=== PATIENT | male | born 1975 | race Caucasian/White ===

== ENCOUNTER 2017-02-08 18:46 | Emergency (ER) | payer OTHER ==
[~2017-02-08] VITALS: Ht 175.3 cm; Wt 77.1 kg
[~2017-02-08 18:46] MED LIST: BCTR15O EXT; HYDR-1231 PO
[2017-02-08] MEDS ORDERED: LISI10TA2 PO (19:00)
[2017-02-08] MEDS ORDERED: LEVOTHYROXINE (19:00)
[2017-02-08] MEDS ORDERED: GABAPENTIN (19:00)
[2017-02-08] MEDS ORDERED: HYDROcodone/APAP 10 MG/325 MG (LORTAB) TAB PO STA (19:16)
[2017-02-08] MEDS ORDERED: TETANUS,DIPTH,PERTUSS P/F (BOOSTRIX) 0.5 ML VIAL IM STA (19:16)
--- NOTE | 2017-02-08 19:25 | ED Fall/Injury ---
General Chief Complaint: Upper Extremity Stated Complaint: R ARM INJ Nursing Triage Note: PT STATES HE SLIPPED AND FELL GETTING INTO THE SHOWER, CC OF RT FOREARM PAIN AND SWELLING AND LOW BACK PAIN. NO LOC OR NECK PAIN. Source: patient Exam Limitations: no limitations History of Present Illness Time seen by provider: 19:25 Initial Comments 41-year-old male patient presents to the emergency department with complaints of low back pain and right forearm pain/swelling after falling while getting into the shower. Denies loss of consciousness, headache, confusion, neck pain, or dizziness. Denies bowel or bladder incontinence. Location Injury Occurred: home Occurred: this evening Injuries/Pain Location: upper extremity (right forearm), back Context: slipped Loss of Consciousness: no loss of consciousness Modifying Factors: Improves With Immobilization, Worse With Movement Allergies and Home Medications Allergies Coded Allergies: No Known Drug Allergies (Unverified , 05/02/15) Home Medications Bacitracin 15 Gm Oint, 15 GM EXT DAILY, #1 Ref 11 Prescribed by: HARJIT SHIPMAN on 05/02/15 0331 Hydrocodone Bit/Acetaminophen 1 Tab Tablet, 1-2 TAB PO Q6H PRN for PAIN, #20 Prescribed by: HARJIT SHIPMAN on 05/02/15 0328 Lisinopril 10 Mg Tablet, 10 MG PO DAILY, (Reported) [Gabapentin] , (Reported) [Levothyroxine] , (Reported) Constitutional: No dizziness, No weakness Eyes: No Symptoms Reported Ears, Nose, Mouth, Throat: no symptoms reported Respiratory: no symptoms reported Cardiovascular: no symptoms reported Gastrointestinal: No abdominal pain, No diarrhea, No nausea, No vomiting Genitourinary: No dysuria, No hematuria, No pain Musculoskeletal: see HPI, back pain, joint pain, joint swelling, No neck pain Skin: no symptoms reported Psychiatric/Neurological: Denies Headache, Denies Numbness, Denies Paresthesia , Denies Seizure, Denies Tingling, Denies Weakness All Other Systems Reviewed Negative Unless Noted: Yes (Negative excepted noted.) Past Qgpibfh-[id number]-Jcduvc Hx Patient Social History Alcohol Use: Denies Use Recreational Drug Use: Yes (METH) Smoking Status: Current Everyday Smoker Type Used: Cigarettes Recent Foreign Travel: No Contact w/Someone Who Travel: No Recent Infectious Disease Expo: No Recent Hopitalizations: No Immunizations Up To Date Tetanus Booster (TDap): More than 5yrs PED Vaccines UTD: No Seasonal Allergies Seasonal Allergies: No Surgeries HX Surgeries: Yes Surgeries: Appendectomy Respiratory Hx Respiratory Disorders: No Cardiovascular Hx Cardiac Disorders: Yes Cardiac Disorders: Hypertension Neurological Hx Neurological Disorders: No Genitourinary Hx Genitourinary Disorders: No Gastrointestinal Hx Gastrointestinal Disorders: No Musculoskeletal Hx Musculoskeletal Disorders: No Endocrine Hx Endocrine Disorders: Yes Endocrine Disorders: Hypothyroidsim Cancer Hx Cancer: No Psychosocial Hx Psychiatric Problems: No Integumentary HX Skin/Integumentary Disorder: No Blood Transfusions Hx Blood Disorders: No Reviewed Nursing Assessment Reviewed/Agree w Nursing PMH: Yes Family Medical History Significant Family History: No Pertinent Family Hx Physical Exam Vital Signs Capillary Refill : Less Than 3 Seconds General Appearance: WD/WN, no apparent distress HEENT: PERRL/EOMI, normal ENT inspection, TMs normal, pharynx normal Neck: non-tender, full range of motion, supple, normal inspection Cardiovascular: normal peripheral pulses, regular rate, rhythm, no murmur Respiratory: lungs clear, normal breath sounds, no respiratory distress Peripheral Pulses: 2+ Dorsalis Pedis (R), 2+ Left Dors-Pedis (L), 2+ Radial Pulses (R), 2+ Radial Pulses (L) Gastrointestinal: normal bowel sounds, non tender, soft, No distended Back: normal inspection, decreased range of motion, muscle spasm, vertebral tenderness (lumbar spine) Extremities: normal capillary refill, pelvis stable, swelling (swelling, bony tenderness, and soft tissue tenderness right forearm. Tenderness of the distal to mid humerus without ecchymosis or swelling.) Neurologic/Psychiatric: data technical lead II-XII nml as tested, no motor/sensory deficits, alert, normal mood/affect, oriented x 3 Skin: normal color, warm/dry Progress/Results/Core Measures Results/Orders My Orders Orders - TROY FERGUSON Forearm, Right, 2 Views (02/08/17 19:16) Humerus, Right, 2 Views (02/08/17 19:16) Ct Lumbar Spine Wo (02/08/17 19:16) Hydrocodone/Apap 10/325 Tablet (Lortab 1 (02/08/17 19:16) Dipht,Pertuss(Acell),Tet Adult (Boostrix (02/08/17 19:16) Vaccine Administration Single (02/08/17 ) Vital Signs/I&O Blood Pressure Mean: 108 Diagnostic Imaging Diagonstic Imaging: CT Plain Films/CT/US/NM/MRI: other (lumbar spine) Comments FINDINGS: Lumbar vertebral body heights are maintained. The alignment is within normal limits. The pedicles and pars were intact. Degenerative disc space narrowing, vacuum gas phenomena, endplate sclerosis, osteophytes and subcortical cysts appeared most pronounced at the L5-S1 level where there is a resultant mild canal and mild biforaminal stenosis. An acute-appearing abnormality, however, is not identified. No paravertebral mass, hemorrhage or fluid collection. Sacrum appeared nonacute. The transverse processes and posterior elements nonacute. IMPRESSION: Spondylosis and facet arthrosis greatest across the lumbosacral junction. An acute-appearing abnormality, however, is not identified. Dictated by: Dictated on workstation # [id number] Reviewed: Reviewed by Me (radiology report reviewed by me) Diagonstic Imaging: Xray Plain Films/CT/US/NM/MRI: other (humerus) Comments Indication: Right arm injury from a fall 2 views of the right humerus show no fracture or dislocation. Impression: Negative right humerus Dictated by: Dictated on workstation # [id number] Reviewed: Reviewed by Me (radiology report reviewed by me) Diagonstic Imaging: Xray Plain Films/CT/US/NM/MRI: forearm Comments FINDINGS: Radius and ulna appear intact. No pathologically displaced fat pads at the elbow. The wrist appears nonacute. IMPRESSION: No acute-appearing abnormality. Dictated by: Dictated on workstation # [id number] Reviewed: Reviewed by Me (radiology report reviewed by me) Departure Communication Progress Notes Diagnostic findings discussed with the patient. Plan for discharge to home. Impression Impression: Primary Impression: Lumbar back sprain Qualified Codes: S33.5XXA - Sprain of ligaments of lumbar spine, initial encounter Additional Impression: Contusion of forearm, right Disposition: Condition: Stable Departure-Patient Inst. Decision time for Depature: 20:04 Referrals: [facility] (PCP/Family) Primary Care Physician Patient Instructions: Contusion (DC), Muscle Strain (DC) Add. Discharge Instructions: All discharge instructions reviewed with patient and/or family. Voiced understanding. Tylenol Extra Strength [id number] as directed for pain. Ibuprofen 800 mg by mouth every 8 hours as needed for pain. No lifting, strenuous activity, twisting 7 days. Increase activity as tolerated. Follow- up with her family practitioner if no improvement in symptoms in 7-10 days. Return to the emergency department for worsened symptoms, numbness, weakness, bowel incontinence, bladder incontinence, or any other concerns. TROY FERGUSON Feb 08, 2017 19:25
--- NOTE | 2017-02-08 19:54 | Diagnostic Imaging Report ---
INDICATION: Fall, pain. FINDINGS: Radius and ulna appear intact. No pathologically displaced fat pads at the elbow. The wrist appears nonacute. IMPRESSION: No acute-appearing abnormality. Dictated by: Dictated on workstation # [id number]
--- NOTE | 2017-02-08 19:54 | Diagnostic Imaging Report ---
Indication: Right arm injury from a fall 2 views of the right humerus show no fracture or dislocation. Impression: Negative right humerus Dictated by: Dictated on workstation # [id number]
--- NOTE | 2017-02-08 19:54 | Diagnostic Imaging Report ---
PROCEDURE: CT lumbar spine without contrast. TECHNIQUE: Multiple contiguous axial images were obtained through the lumbar spine without the use of intravenous contrast. Sagittal and coronal reformations were then performed. INDICATION: Fall with pain. FINDINGS: Lumbar vertebral body heights are maintained. The alignment is within normal limits. The pedicles and pars were intact. Degenerative disc space narrowing, vacuum gas phenomena, endplate sclerosis, osteophytes and subcortical cysts appeared most pronounced at the L5-S1 level where there is a resultant mild canal and mild biforaminal stenosis. An acute-appearing abnormality, however, is not identified. No paravertebral mass, hemorrhage or fluid collection. Sacrum appeared nonacute. The transverse processes and posterior elements nonacute. IMPRESSION: Spondylosis and facet arthrosis greatest across the lumbosacral junction. An acute-appearing abnormality, however, is not identified. Dictated by: Dictated on workstation # [id number]
[2017-02-08 20:14] VITALS: BP 149/88
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
--- OUTSIDE RECORDS SUMMARY | 2017-03-14 06:54 | XMS REPORT ---
Author Author HUOSTON TAYLOR Organization [employer] Address Unknown Phone Unavailable Care Team Providers Care Chronometer Repairer Name Role Phone HOUSTON TAYLOR CP Unavailable Allergies No Known Allergies Problems Problem Type Condition Code Onset Dates Condition Status Problem Hyperlipidemia, unspecified E78.5 Active Problem Hypertension, benign I10 Active Problem Hyperlipidemia, mixed E78.2 Active Assessment Hypothyroidism, unspecified E03.9 Active Assessment Essential hypertension I10 Active Assessment Hyperlipidemia, mixed E78.2 Active Medications No Known Medications Procedures Procedure Coding System Code Date Preventive Care Est. Pt. Age 1-4 CPT-4 45533 Oct 29, 2015 Vital Signs Date/Time: Oct 29, 2015 Cardiac Monitoring Heart Rate 78 bpm Weight 177 lbs Height 69 in BMI 26.14 Index Blood Pressure Diastolic 78 mmHg Blood Pressure Systolic 136 mmHg Results No Known Results Summary Purpose [employer] Submission
--- OUTSIDE RECORDS SUMMARY | 2017-03-14 06:54 | XMS REPORT ---
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 Monthly blodd pressure check. Fish Oil [facility] [address]-56 900-1,400 mg Dec 12, 2013 1 2 times per day levothyroxine ND 0 100 mcg February 15, 2014 1 tablet by Oral route 1 time per day Procedures Procedure Coding System Code Date Office Visit, Est Pt., Level 2 CPT-4 78078 Sep 03, 2015 Vital Signs Date/Time: Sep 03, 2015 Cardiac Monitoring Heart Rate 88 bpm Weight 169 lbs Height 69 in BMI 24.95 Index Blood Pressure Diastolic 80 mmHg Blood Pressure Systolic 116 mmHg Results No Known Results Summary Purpose [employer] Submission
== END 2017-02-08 20:15 ==
LOC: EDUNIT# 18:46 → ER 18:47
DX: S33.5XXA Sprain of ligaments of lumbar spine, initial encounter (principal); S50.11XA Contusion of right forearm, initial encounter; Z23 Encounter for immunization; I10 Essential (primary) hypertension; F17.210 Nicotine dependence, cigarettes, uncomplicated; Z79.899 Other long term (current) drug therapy; W18.2XXA Fall in (into) shower or empty bathtub, initial encounter; Y93.E1 Activity, personal bathing and showering; Y92.012 Bathroom of single-family (private) house as the place of occurrence of the external cause; Y99.8 Other external cause status
CPT/HCPCS: 72131; 73060; 73090; 90471; 90715; 99282